=== PATIENT | female | born 1960 | race Two or more races ===

== ENCOUNTER 2018-09-05 07:00 | Day surgery (SDC) | payer OTHER ==
[~2018-09-05 07:00] MED LIST: LOSARTAN-HCTZ1 EAC2 PO; METFORMIN HCL500 MG PO; SYNTHROID112 MCG PO
== END 2018-09-05 13:00 | disposition home or self-care (01) ==
LOC: CIR.AMB 07:00
DX: D07.2 Carcinoma in situ of vagina (principal)